=== PATIENT | male | born 2000 | race Caucasian/White ===

== ENCOUNTER 2019-06-12 13:25 | Emergency (ER) | payer MEDICAID, SELFPAY ==
[2019-06-12 13:25] VITALS: BP 139/74; PULSE 88; RESP 16; TEMP 36.6; O2SAT 98; BMI 26.2
[2019-06-12] MEDS: 0.9% Normal Saline 1,000 ML 999 ML IV (14:00)
[2019-06-12] MEDS: Dicyclomine 10 MG Capsule 20 MG PO (14:00)
[2019-06-12 14:01] LABS: Basophil# 0.04 X10^3/uL; Basophil% 0.6 % (0-1); Eosinophil# 0.12 X10^3/uL; Eosinophils% 1.8 % (0-5); Hematocrit 43.1 % (40-54); Hemoglobin 14.4 g/dL (13.0-16.5); Lymphocyte % 27.4 % (19-41); Mean Corp Hgb Conc 33.4 g/dL (32-36); Mean Corpuscular Hgb 30.8 pg (27.0-32.0); Mean Corpuscular Volume 92.3 fL (80-94); Mean Platelet Vol. 10.1 fl (6.2-12.0); Monocyte# 0.55 X10^3/uL; Monocyte% 8.4 % (0-10); NRBC Flagged by Analyzer 0 % (0-5); Neutrophil # 4.04 X10^3/uL (2.7-7.7); Neutrophil % 61.5 % (47-70); Platelet Count 254 K/mm3 (150-450); RBC Distribution Width CV 12.4 % (11.6-14.6); RBC Distribution Width SD 42.2 fl (35.1-43.9); Red Blood Count 4.67 M/mm3 (4.6-6.2); White Blood Count 6.6 K/mm3 (4.4-11.0)
[2019-06-12 14:17] LABS: ALB/GLOB Ratio 1.1 RATIO (0.9-2.4); AST(SGOT) 22 U/L (15-37); Alanine Aminotransfer ALT/SGPT 24 U/L (16-61); Albumin, Serum 3.6 g/dL (3.2-5.0); Alkaline Phosphatase 111 U/L (45-117); Anion Gap 4 (5-15); BUN 10 mg/dL (7-18); BUN/Creat Ratio 9.8 RATIO (10-20); Calcium,Total 8.8 mg/dL (8.5-10.1); Chloride 105 mmol/L (98-107); Creatinine, Serum 1.02 mg/dL (0.70-1.30); EST Glomerular Filtration Rate 99 mL/min (>60); Est Glom Filt Rate - Afr Amer 119 mL/min (>60); Estimated Creatinine Clearance 96.35 ml/min; Globulin 3.3 g/dL (2.2-4.2); Glucose 79 mg/dL (74-106); Potassium 3.9 mmol/L (3.5-5.1); Protein, Total 6.9 g/dL (6.4-8.2); Sodium Level 139 mmol/L (136-145)
--- NOTE | 2019-06-12 15:04 | ED.VIS.GI ---
History of Present Illness Chief Complaint: Abd Pain Informant: Patient - Abdominal Pain/Flank Pain Onset: Weeks - 3 Context: Gradual Onset Timing: Intermittent Quality: Sharp Location: - - lower abd Current Severity: Mild Maximum Severity: Moderate Worsened by: Nothing Relieved by: - - having BM sometimes helps - Nausea/Vomiting/Emesis GI Symptom: Negative for: Nausea, Vomiting - Diarrhea/Melena/Hematochezia GI Symptom: Diarrhea. Negative for: Melena, Hematochezia Onset: Weeks - 3 Stool Quality: Loose Severity: Mild - about ev other day, 3-4x/day when present Associated Symptoms: Negative for: Dysuria, Frequency, Hematuria, Urgency Narrative: No blood in his stool. No melena. No mucus or tenesmus. He has never had this before but it has been persistent for the past 3 weeks. No nausea or vomiting or fevers. No recent antibiotics. No hospitalization or surgery. No recent travel out of the region/area. No new sources of ground water ingestion. No recent camping. No sick contacts that are known to him. Past Medical History - Allergies and Home Meds Allergies/Adverse Reactions: Allergies No Known Allergies Allergy (Verified 06/12/19 13:26) Past Medical History: None Smoking Status: Current every day smoker Review of Systems General: Denies: Chills, Fever, Sweats Eyes: Denies: Visual changes - bilaterally, Diplopia ENT: Denies: Rhinorrhea, Sore throat Cardiovascular: Denies: Chest pain, Palpitations Respiratory: Denies: Dyspnea, Cough, Dyspnea on exertion Gastrointestinal: Reports: Abdominal pain, Diarrhea. Denies: Nausea, Vomiting, Melena, Hematochezia Genitourinary: Denies: Dysuria, Hematuria, Frequency Musculoskeletal: Denies: Back pain, Extremity Pain Skin: Denies: Rash, Wounds Neurological: Denies: Headache, Weakness, Numbness Physical Exam Vital Signs/Narrative: Vital Signs Temp Pulse Resp BP Pulse Ox 06/12/19 13:25 98 F 88 16 139/74 H 98 Inital Vital Signs reviewed: Yes General: Well nourished, Well developed, No Acute Distress - Well-appearing. Using cell phone. Head: Normocephalic, Atraumatic Eyes: Perrl, EOMI ENT: Moist mucous membranes, No rhinorrhea Neck: Supple, Nontender Cardiovascular: Regular rate, Regular rhythm, No murmurs Respiratory: No distress, CTA bilaterally, Chest nontender Abdomen: Soft, Nontender, Nondistended, Normal bowel sounds Back: Nontender, Normal Inspection. Negative for: CVA tenderness Extremities: Nontender, No edema Skin: Normal color, No rash, No Trauma Neurological: Alert, Oriented x3, Cranial nerves II-XII grossly intact, Normal Strength, Normal Sensation Psychological: Normal affect, Normal Mood Diagnostic/Tx/Re-eval Laboratory Tests 06/12/19 06/12/19 Range/Units 13:45 13:45 WBC 6.6 (4.4-11.0) K/mm3 RBC 4.67 (4.6-6.2) M/mm3 Hgb 14.4 (13.0-16.5) g/dL Hct 43.1 (40-54) % MCV 92.3 (80-94) fL MCH 30.8 (27.0-32.0) pg MCHC 33.4 (32-36) g/dL RDW Std Deviation 42.2 (35.1-43.9) fl RDW Coeff of Leonel 12.4 (11.6-14.6) % Plt Count 254 (150-450) K/mm3 MPV 10.1 (6.2-12.0) fl Immature Gran % (Auto) 0.300 (0.0-0.9) % Neut % (Auto) 61.5 (47-70) % Lymph % (Auto) 27.4 (19-41) % Childress % (Auto) 8.4 (0-10) % Eos % (Auto) 1.8 (0-5) % Baso % (Auto) 0.6 (0-1) % Absolute Neuts (auto) 4.0 (2.0-7.7) X10^3/uL Absolute Lymphs (auto) 1.80 (0.83-4.51) X10^3/uL Nucleated RBC % 0 (0-5) % Sodium 139 (136-145) mmol/L Potassium 3.9 (3.5-5.1) mmol/L Chloride 105 (98-107) mmol/L Carbon Dioxide 30.0 (21.0-32.0) mmol/L Anion Gap 4 L (5-15) BUN 10 (7-18) mg/dL Creatinine 1.02 (0.70-1.30) mg/dL Estim Creat Clear Calc 96.35 ml/min Est GFR (MDRD) Af Amer 119 (>60) mL/min Est GFR (MDRD) Non-Af 99 (>60) mL/min BUN/Creatinine Ratio 9.8 L (10-20) RATIO Glucose 79 (74-106) mg/dL Calcium 8.8 (8.5-10.1) mg/dL Total Bilirubin 0.20 (0.20-1.00) mg/dL AST 22 (15-37) U/L ALT 24 (16-61) U/L Alkaline Phosphatase 111 (45-117) U/L Total Protein 6.9 (6.4-8.2) g/dL Albumin 3.6 (3.2-5.0) g/dL Globulin 3.3 (2.2-4.2) g/dL Albumin/Globulin Ratio 1.1 (0.9-2.4) RATIO - Medical Decision Making Labs are normal he has no leukocytosis. Differential includes infections, inflammatory disorders. I am not concerned about appendicitis or diverticulitis at this time. I think the most prudent thing to do would just be to rule out a bacterial infection with a stool sample, as well as ova and parasites. He cannot go while here in the emergency department, he prefers to go home and do an outpatient test, but he has no doctor. Will refer him to the next doctor on the unassigned list, Dr. Blanca, with test results going to him. Patient was given some Bentyl here which did help with his sharp lower abdominal discomfort which is likely intestinal in nature. Will also give him a prescription for that to use as needed. He is comfortable with this plan. ED Disposition - Plan for ED Patient: Disposition: Home or Assisted Living Diagnosis: Lower abdominal pain, Acute diarrhea Instructions: ABDOMINAL PAIN, Unkown Cause, (Male), DIARRHEA, Unk Cause (Adult) Report Pendg Prescriptions: Dicyclomine HCl [Bentyl] 20 mg PO . Q4-6H PRN #20 cap PRN Reason: abdominal cramping Prescription Printed Referrals: Manuel Blanca MD [NON-STAFF] - 3-5 Days if not improving
[2019-06-12 15:37] VITALS: BP 118/66; PULSE 64; RESP 14; O2SAT 100
== END 2019-06-12 15:38 | disposition home or self-care (01) ==
PROVIDERS: Emergency Provider Emergency Medicine
DX: R10.30 Lower abdominal pain, unspecified (principal); R19.7 Diarrhea, unspecified; F17.200 Nicotine dependence, unspecified, uncomplicated
CPT/HCPCS: 80053; 85025; 87177; 87209; 87506; 96360; 99283; J7030; A4216

== ENCOUNTER 2021-07-02 12:52 | Emergency (ER) | payer MEDICAID, SELFPAY ==
[2021-07-02 12:53] VITALS: BP 137/73; PULSE 65; RESP 16; TEMP 36.6; O2SAT 99; BMI 27.6
--- NOTE | 2021-07-02 13:06 | EDS_ITS ---
HPI History of Present Illness Chief Complaint: Dizziness Informant: patient Narrative Narrative: 20-year-old male presents the emergency department via EMS following a episode of lightheadedness. Patient states he usually walks everywhere but today surprisingly became lightheaded. He states that because of his depression anxiety PTSD which is untreated he has not been eating and drinking as well as normal. He feels fatigued. No chest pain or shortness of breath. Patient would like something to eat. He states he is interested in finding out some local resources for mental health as he has recently moved from the [facility] to here. [facility] Medical History (Updated 07/02/21 @ 13:[address] Michele Garcia, ) Anxiety Depression PTSD (post-traumatic stress disorder) Home Medications dicyclomine 20 mg PO . Q4-6H PRN #20 cap 06/12/19 [Rx Last Taken Unknown] lisdexamfetamine 60 mg PO DAILY 06/12/19 [History Last Taken Unknown] oxcarbazepine 600 mg PO BID 06/12/19 [History Last Taken Unknown] trazodone 200 mg PO QHS 06/12/19 [History Last Taken Unknown] Allergy/AdvReac Type Severity Reaction Status Date / Time No Known Allergies Allergy Verified 07/02/21 12:53 no surgical history Social History (Updated 07/02/21 @ 13:[address] Michele Garcia, ) Smoking Status: Current every day smoker tobacco type: cigarettes alcohol intake: current alcohol intake frequency: holidays/special occasions only substance use type: marijuana ROS ROS ED ROS Narrative Fatigue lightheadedness Constitutional Constitutional ED: Denies chills or weight loss Eyes Eyes: Denies change in vision or diplopia ENT ENT ED: Denies ear pain, rhinorrhea or sore throat Cardiovascular Cardiovascular: Denies chest pain, orthopnea, palpitations or racing heartbeat Respiratory/Chest Respiratory/Chest: Denies cough, dyspnea or orthopnea Gastrointestinal Gastrointestinal: Denies abdominal pain, diarrhea, nausea or vomiting Genitourinary Genitourinary ED: Denies dysuria, hematuria or urinary frequency Musculoskeletal Musculoskeletal: Denies arthralgias or myalgias Integumentary Denies abscess or rash Neurologic Neurologic: Denies headache(s) or weakness Psychiatric Psychiatric: Denies anxiety, depression, suicidal ideation or suicidal thoughts Endocrine Endocrinology: Denies polydipsia, polyphagia or polyuria Allergic/Immunologic Allergic/Immunologic ED: Denies mouth swelling, tongue swelling or urticaria EXAM Physical Exam Const Vital Signs: 07/02/21 12:53 Temperature 98 F Temperature Source Temporal Pulse Rate 65 Respiratory Rate 16 Blood Pressure 137/73 H Blood Pressure Mean 94 Pulse Ox 99 Oxygen Delivery Method Room Air Positive well nourished and well developed General Appearance ED: well developed HEENT Reports normocephalic, head/scalp atraumatic and moist mucous membranes Eyes PERRL and EOMs intact bilaterally Neck no lymphadenopathy, supple and no JVD Resp normal respiratory effort and clear to auscultation bilaterally Cardio regular rate, regular rhythm and no murmurs GI normal to inspection, nondistended, normoactive bowel sounds and non-tender Palpation: soft Back/Spine no CVA tenderness and normal ROM Extremity normal to inspection General Extremety ED: Negative for edema General Extremity: Negative for edema Neuro oriented x3 and CN's II-XII intact bilaterally Sensorium / Orientation: alert Motor Exam: strength 5/5 throughout Psych mental status grossly normal Mood & Affect: Negative for depressed or tearful Skin no rashes or lesions noted and no wounds MDM MDM MDM Narrative Medical decision making narrative: Patient received a liter of IV fluids and food. He was given resources by case management. Patient will be discharged home. Discharge Plan Triage Chief Complaint: Dizziness Other Complaint: Nausea/Vomiting ED Provider: Michele Garcia Dx/Rx/DC Orders Clinical Impression: Light-headedness, Depression Instructions: ED Depression Prescriptions: No Action trazodone 100 MG tablet 200 mg PO QHS RF: 0 oxcarbazepine 600 MG tablet 600 mg PO BID RF: 0 lisdexamfetamine 60 MG capsule 60 mg PO DAILY RF: 0 dicyclomine 10 MG capsule 20 mg PO . Q4-6H PRN (Reason: abdominal cramping) Qty: 20 RF: 0 Primary Care Provider: Care Physician,No Primary Referrals: Counseling,Center [GROUP OF PHYSICIANS] - As soon as possible Toyin Olsen MD [STAFF PHYSICIAN] - As Needed (for primary care) Care Physician,No Primary [Primary Care Provider] - Disposition Disposition: Home, Self Care
--- NOTE | 2021-07-02 13:20 | CM.ED ---
MARY Note Referral Source: MD Referral Reason: Patient reports past psych medications and wants community resources MARY met with patient in his room. He reports that [facility]. He reports he wants to be relinked with the [facility] again. Patient was provided with [employer] with resources. MARY asked if patient wanted this residential mortgage underwriter to call [facility] or did patient want to call. He requested that this residential mortgage underwriter call [facility]. MARY scheduled appointment for patient at [facility] for 1:00pm. Patient denied any current suicidal ideation. MARY gave patient a piece of paper stating the date and time of his appointment at [facility]. MARY asked if patient had any additional issues or needs and he said no. updated.
[2021-07-02] MEDS: 0.9% Normal Saline 1,000 ML 999 ML IV (13:26)
--- NOTE | 2021-07-02 13:40 | ED.RN ---
pt admits to depression, social work talked with pt and made appt with counseling center for tomorrow.
== END 2021-07-02 14:08 | disposition home or self-care (01) ==
PROVIDERS: Emergency Provider Emergency Medicine
DX: R42 Dizziness and giddiness (principal); F32.9 Major depressive disorder, single episode, unspecified; R11.2 Nausea with vomiting, unspecified; F17.210 Nicotine dependence, cigarettes, uncomplicated; F43.10 Post-traumatic stress disorder, unspecified
CPT/HCPCS: 96360; 99285; J7030; A4216

== ENCOUNTER 2021-08-19 17:37 | Emergency (ER) | payer MEDICAID, SELFPAY ==
[2021-08-19 17:38] VITALS: BP 117/80; PULSE 97; RESP 18; TEMP 36.7; O2SAT 99; BMI 29.5
[2021-08-19 18:18] LABS: Absolute Lymphocyte Count 2.13 X10^3/uL (0.83-4.51); Absolute Neutrophil Count 8.3 X10^3/uL (2.0-7.7); Basophil# 0.06 X10^3/uL; Basophil% 0.5 % (0-1); Eosinophil# 0.06 X10^3/uL; Eosinophils% 0.5 % (0-5); Hematocrit 47.1 % (40-54); Hemoglobin 16.3 g/dL (13.0-16.5); Lymphocyte # 2.13 X10^3/ul (0.83-4.51); Lymphocyte % 18.8 % (19-41); Mean Corp Hgb Conc 34.6 g/dL (32-36); Mean Corpuscular Hgb 31.2 pg (27.0-32.0); Mean Corpuscular Volume 90.1 fL (80-94); Mean Platelet Vol. 9.9 fl (6.2-12.0); Monocyte# 0.75 X10^3/uL; Monocyte% 6.6 % (0-10); NRBC Flagged by Analyzer 0 % (0-5); Neutrophil % 73.3 % (47-70); Platelet Count 397 K/mm3 (150-450); RBC Distribution Width SD 39.6 fl (35.1-43.9); Red Blood Count 5.23 M/mm3 (4.6-6.2); White Blood Count 11.3 K/mm3 (4.4-11.0)
[2021-08-19 18:30] LABS: Anion Gap 7 (5-15); BUN 19 mg/dL (7-18); BUN/Creat Ratio 18.6 RATIO (10-20); Calcium,Total 9.7 mg/dL (8.5-10.1); Chloride 104 mmol/L (98-107); Creatinine, Serum 1.02 mg/dL (0.70-1.30); EST Glomerular Filtration Rate 97 mL/min (>60); Est Glom Filt Rate - Afr Amer 117 mL/min (>60); Estimated Creatinine Clearance 106.41 ml/min; Glucose 105 mg/dL (74-106); Potassium 4.1 mmol/L (3.5-5.1); Sodium Level 140 mmol/L (136-145)
[2021-08-19 18:36] LABS: Amphetamine Urine VISTA NEGATIVE (<1000 ng/mL); Barbiturate Urine VISTA NEGATIVE (< 200 ng/mL); Benzodiazepine Urine VISTA NEGATIVE (< 200 ng/mL); Cocaine Urine VISTA NEGATIVE (< 300 ng/mL); Ecstacy Urine VISTA NEGATIVE (< 500 ng/mL); Methadone Urine VISTA NEGATIVE (< 300 ng/mL); PCP Urine VISTA NEGATIVE (< 25 ng/mL); THC Urine VISTA POSITIVE (< 50 ng/mL); Vista UDS pH Range 6
[2021-08-19 18:37] LABS: Alcohol, Blood (Medical)-Serum < 3.0 mg/dL
[2021-08-19 20:00] VITALS: BP 121/78; PULSE 73; RESP 16; O2SAT 99
--- NOTE | 2021-08-19 20:27 | EDS_ITS ---
HPI HPI - Psych History of Present Illness Chief Complaint: Mental Health Informant: patient Narrative Narrative: Presents here for mental health evaluation requesting admission. Reports history of bipolar depression, PTSD, ADHD stating suicidal his whole life. He states increasing depression. He supposed be on Trileptal however counseling center has not refilled medications. He states he was admitted in [place] 2 months ago for similar. He is requesting help for his depression. He has no specific plan. He states he attempted overdose 2 months ago. THC history. Last alcohol was 2 days ago. Denies daily alcohol use. In addition states he was staying with a friend who was evicted from place yesterday now is homeless. He does not want to go to a intermediate. He states he is requesting a mental health facility to assist with his depression. Denies any medical symptoms. Prior similar symptoms: Yes PFSH PFS Medical History Anxiety Depression Iyau-Uiava-Xkozqwr disease PTSD (post-traumatic stress disorder) Home Medications NK 08/19/21 [History Last Taken Unknown] Allergy/AdvReac Type Severity Reaction Status Date / Time No Known Allergies Allergy Verified 08/19/21 17:38 Social History Smoking Status: Current every day smoker tobacco type: cigarettes alcohol intake: current alcohol intake frequency: holidays/special occasions only substance use type: marijuana ROS ROS ED Constitutional Constitutional ED: Denies chills, fever(s) or sweats Eyes Eyes: Denies change in vision ENT ENT ED: Denies dysphagia or sore throat Cardiovascular Cardiovascular: Denies chest pain, leg edema, palpitations or racing heartbeat Respiratory/Chest Respiratory/Chest: Denies cough, dyspnea or dyspnea on exertion Gastrointestinal Gastrointestinal: Denies abdominal pain, diarrhea, nausea or vomiting Genitourinary Genitourinary ED: Denies dysuria, hematuria or urinary frequency Musculoskeletal Musculoskeletal: Denies back pain, extremity pain or neck pain Integumentary Denies rash or wounds Neurologic Neurologic: Denies headache(s), paresthesias or weakness Psychiatric Psychiatric: Reports depression and suicidal thoughts EXAM Physical Exam Const Vital Signs: 08/19/21 17:38 Temperature 98.1 F Temperature Source Temporal Pulse Rate 97 Respiratory Rate 18 Blood Pressure 117/80 Blood Pressure Mean 92 Pulse Ox 99 Oxygen Delivery Method Room Air Positive well nourished and well developed General Appearance ED: well developed and NAD HEENT Reports moist mucous membranes normocephalic and atraumatic Eyes PERRL, EOMs intact bilaterally and conjunctivae normal General Eye ED: Yes normal appearance of both eyes Neck no lymphadenopathy and supple General: Negative for tenderness Chest Wall Chest: Negative for tenderness Resp normal respiratory effort and normal air movement Effort and Inspection: symmetric chest movement; Negative for respiratory distress Cardio regular rate, regular rhythm and no murmurs Peripheral Pulses: pulses 2+ throughout GI normal to inspection, nondistended, normoactive bowel sounds and non-tender Palpation: Negative for guarding or rebound tenderness present Back/Spine no CVA tenderness and no thoracic nor lumbar tenderness Extremity normal to inspection General Extremety ED: Negative for edema or tenderness General Extremity: Negative for edema Neuro oriented x3 and no sensory deficits noted Sensorium / Orientation: awake and alert Psych Psych Narrative: Cooperative, slight flat affect, admitting to suicidal ideations with depression. Skin no rashes or lesions noted and no wounds MDM MDM MDM Narrative Medical decision making narrative: Patient's labs initiated from triage. Basic labs alcohol negative. Tox screen positive for THC. He is requesting mental health admission. Currently is medically cleared. We will have case management discussed and evaluate the patient. Patient evaluated, patient accepted to [facility] to Dr. Sweeney. Lab Data Attestation: I reviewed the patient's lab results. Labs: Laboratory Results - last 24 hr 08/19/21 08/19/21 08/19/21 18:00 18:00 18:00 WBC 11.3 H RBC 5.23 Hgb 16.3 Hct 47.1 MCV 90.1 MCH 31.2 MCHC 34.6 RDW Std Deviation 39.6 RDW Coeff of Leonel 12.0 Plt Count 397 MPV 9.9 Immature Gran % (Auto) 0.300 Neut % (Auto) 73.3 H Lymph % (Auto) 18.8 L Valley % (Auto) 6.6 Eos % (Auto) 0.5 Baso % (Auto) 0.5 Absolute Neuts (auto) 8.3 H Absolute Lymphs (auto) 2.13 Nucleated RBC % 0 Sodium 140 Potassium 4.1 Chloride 104 Carbon Dioxide 29.0 Anion Gap 7 BUN 19 H Creatinine 1.02 Estim Creat Clear Calc 106.41 Est GFR (MDRD) Af Amer 117 Est GFR (MDRD) Non-Af 97 BUN/Creatinine Ratio 18.6 Glucose 105 Calcium 9.7 Urine Opiates Screen Urine Methadone Screen Ur Barbiturates Screen Ur Phencyclidine Scrn Ur Amphetamines Screen U Methamphetamin-MDMA U Benzodiazepines Scrn Urine Cocaine Screen U Cannabinoids Screen Ur Drug Screen Comment Ethyl Alcohol < 3.0 08/19/21 18:00 WBC RBC Hgb Hct MCV MCH MCHC RDW Std Deviation RDW Coeff of Leonel Plt Count MPV Immature Gran % (Auto) Neut % (Auto) Lymph % (Auto) Valley % (Auto) Eos % (Auto) Baso % (Auto) Absolute Neuts (auto) Absolute Lymphs (auto) Nucleated RBC % Sodium Potassium Chloride Carbon Dioxide Anion Gap BUN Creatinine Estim Creat Clear Calc Est GFR (MDRD) Af Amer Est GFR (MDRD) Non-Af BUN/Creatinine Ratio Glucose Calcium Urine Opiates Screen NEGATIVE Urine Methadone Screen NEGATIVE Ur Barbiturates Screen NEGATIVE Ur Phencyclidine Scrn NEGATIVE Ur Amphetamines Screen NEGATIVE U Methamphetamin-MDMA NEGATIVE U Benzodiazepines Scrn NEGATIVE Urine Cocaine Screen NEGATIVE U Cannabinoids Screen POSITIVE H Ur Drug Screen Comment Ethyl Alcohol Discharge Plan Triage Chief Complaint: Mental Health ED Provider: Mark Garcia Dx/Rx/DC Orders Clinical Impression: Depression, Suicidal ideation Prescriptions: No Action NK RF: 0 Primary Care Provider: Care Physician,No Primary Referrals: Care Physician,No Primary [Primary Care Provider] - Disposition Disposition: Psychiatric Hospital or Unit Discharge Location: [facility]
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
--- NOTE | 2021-08-19 22:30 | CM.ED ---
MARY Note MARY faxed referral packet to [facility]. MARY spoke to Kaylyn in admission/intake at [facility]. She indicated [facility] will accept patient pending covid results. MARY faxed the copy of pink slip to [facility] for their records. MARY has reviewed patient's chart. COVID test is pending. MARY will ask nurse discharge planner Ryan to follow up with result and fax it to [facility]. Plan: [facility]
[2021-08-20] VITALS: BP 112/74; PULSE 79; RESP 16; O2SAT 100
[2021-08-20 01:18] VITALS: BP 128/71; PULSE 75; RESP 16; O2SAT 98
[2021-08-20 04:00] VITALS: RESP 16
[2021-08-20 05:00] VITALS: RESP 16
[2021-08-20 06:00] VITALS: RESP 14
[2021-08-20 07:00] VITALS: RESP 14
== END 2021-08-20 07:20 ==
PROVIDERS: Emergency Provider Emergency Medicine
DX: R45.851 Suicidal ideations (principal); F31.9 Bipolar disorder, unspecified; M91.10 Juvenile osteochondrosis of head of femur [Legg-Calve-Perthes], unspecified leg; F43.10 Post-traumatic stress disorder, unspecified; F17.210 Nicotine dependence, cigarettes, uncomplicated; Z59.00 Homelessness unspecified
CPT/HCPCS: 80048; 80307; 82077; 85025; 87426; 99285